=== PATIENT | male | born 1970 | race Hispanic/Latino ===

== ENCOUNTER 2021-09-12 01:57 | Inpatient (IN) | payer OTHER ==
[2021-09-12] VITALS (34 sets, daily range): BP systolic 82–165; BP diastolic 46–98
[~2021-09-12] VITALS: Ht 170.2 cm; Wt 72.8 kg
[2021-09-12] MEDS ORDERED: METHI10 PO (03:18)
[2021-09-12] MEDS ORDERED: METO25TA6 PO (03:18)
[2021-09-12 03:55] LABS: ABG BASE EXCESS 3.4 mmol/L (-2.0-3.0); ABG OXYGEN SATURATION 96.3 % (95.0-99.0); ABG PCO2 38 mmHg (35-48)
[2021-09-12 04:07] LABS: BASOPHILS % (AUTO) 0.7 % (0.0-5.0); EOSINOPHILS % (AUTO) 1.4 % (0.0-8.0); HEMATOCRIT 38.3 % (42-54); LYMPHOCYTES % (AUTO) 17.7 % (21.0-51.0); MEAN CORPUSCULAR HEMOGLOBIN 27.2 pg (27.0-33.0); MEAN CORPUSCULAR HGB CONC 32.1 g/dL (32.0-36.0); MEAN CORPUSCULAR VOLUME 84.7 fL (79-99); MONOCYTES % (AUTO) 7.2 % (3.0-13.0); NEUTROPHILS % (AUTO) 72.6 % (40.0-77.0); PLATELET COUNT (AUTO) 454 K/uL (130-400); RED BLOOD CELL COUNT(AUTO) 4.52 MIL/uL (4.50-6.20); RED CELL DISTRIBUTION WIDTH 11.7 % (11.0-15.5); WHITE BLOOD COUNT (AUTO) 9.8 K/uL (4.8-10.8)
[2021-09-12 04:22] LABS: INR 1.07 (0.85-1.15); PROTHROMBIN TIME 11.6 SEC (9.6-11.6)
[2021-09-12 04:23] LABS: PARTIAL THROMBOPLASTIN TIME 33.9 SEC (26.3-35.5)
[2021-09-12 04:32] LABS: ALBUMIN 2.8 g/dL (3.5-5.0); BILIRUBIN,TOTAL 0.3 mg/dL (0.2-1.0); CREATININE 0.7 mg/dL (0.5-1.5); POTASSIUM 4.1 mmol/L (3.5-5.1); TOTAL PROTEIN, SERUM 6.7 g/dL (6.0-8.3)
[2021-09-12 04:50] LABS: B-TYPE NATRIURETIC PEPTIDE 709 pg/mL (0-100)
[2021-09-12] MEDS ORDERED: METOPROLOL TARTRATE 25 MG TAB ONE (06:50)
[2021-09-12] MEDS ORDERED: EPINEPHRINE PF 1MG AMP 10 MG in 0.9% NACL 250ML 240 ML IV PRN (07:00)
[2021-09-12] MEDS ORDERED: CEFAZOLIN SODIUM 1 GM VIAL IVP PRN (07:00)
[2021-09-12] MEDS ORDERED: NOREPINEPHRINE BITARTRATE 8 MG in 0.9% NACL 250ML 250 ML IV PRN (07:00)
[2021-09-12] MEDS ORDERED: AMINOCAPROIC ACID 5,000MG VIAL 15,000 MG in 0.9% NACL 500ML IV.SOLN 420 ML IV PRN (07:00)
[2021-09-12] MEDS ORDERED: PAPAVERINE HCL 30 MG/ML 2ML VIAL ONE (07:53)
[2021-09-12] MEDS ORDERED: CEFAZOLIN SODIUM 1 GM VIAL ONE (07:53)
[2021-09-12] MEDS ORDERED: NITROGLYCERIN 50MG/D5W 250ML 1 BOT ONE (08:37)
[2021-09-12] MEDS: ASPIRIN 81MG CHEW TAB PO SCH (09:00)
[2021-09-12] MEDS ORDERED: METOPROLOL TARTRATE 25 MG TAB PO SCH (09:00)
[2021-09-12] MEDS ORDERED: 0.9%NACL 1000ML 1,000 ML IV ONE ×2 (09:22→15:50)
[2021-09-12] MEDS ORDERED: MIDAZOLAM HCL 1 MG/ML 2ML VIAL ONE (10:39)
[2021-09-12 11:42] LABS: CHOLESTEROL 208 mg/dL (<200); HDL CHOLESTEROL 49 mg/dL (29-71); LDL DIRECT 132 mg/dL (0-99); TRIGLYCERIDES 68 mg/dL (30-200)
[2021-09-12] MEDS ORDERED: SODIUM BICARB 8.4% 50ML SYRINGE IVP ONE (12:41)
[2021-09-12] MEDS ORDERED: ALBUMIN (HUMAN) 25% 50 ML IV ONE (12:41)
[2021-09-12] MEDS ORDERED: AMINOCAPROIC ACID 5,000MG VIAL IV ONE (12:41)
[2021-09-12] MEDS ORDERED: MANNITOL 25% 50ML VIAL IV ONE (12:41)
[2021-09-12] MEDS ORDERED: MAGNESIUM SULFATE 1 GM/2 ML VIAL IM ONE (12:41)
[2021-09-12] MEDS ORDERED: PHENYLEPHRINE HCL 10 MG/ML 1ML VIAL IV ONE (12:41)
[2021-09-12] MEDS ORDERED: HEPARIN 10,000 UNIT/10ML (1,000 UNIT/ML) VIAL IV ONE (12:41)
[2021-09-12] MEDS ORDERED: AMINOCAPROIC ACID 5,000MG VIAL ONE (12:44)
[2021-09-12] MEDS ORDERED: PROTAMINE SULFATE 10 MG/ML 25ML VIAL IV ONE (12:44)
[2021-09-12] MEDS ORDERED: SODIUM BICARB 50MEQ 50ML VIAL 50 ML ONE (12:44)
[2021-09-12] MEDS ORDERED: NOREPINEPHRINE BITARTRATE 1 MG/1 ML ML IV ONE (12:44)
[2021-09-12] MEDS ORDERED: HEPARIN 10,000 UNIT/10ML (1,000 UNIT/ML) VIAL ONE ×2 (12:44→15:01)
[2021-09-12] MEDS ORDERED: LIDOCAINE PF 100MG/5ML (2%) SYRINGE 5ML ONE ×2 (12:44→15:01)
[2021-09-12] MEDS ORDERED: EPINEPHRINE PF 1MG AMP ONE (12:44)
[2021-09-12] MEDS ORDERED: ESMOLOL HCL 10 MG/ML 10 ML VIAL ONE (12:44)
[2021-09-12] MEDS ORDERED: ROCURONIUM 10MG/1ML SYR 10 MG/ML ML ONE ×2 (12:45→14:23)
[2021-09-12] MEDS ORDERED: PROPOFOL 10 MG/ML 20ML VIAL IV ONE (12:45)
[2021-09-12] MEDS ORDERED: FENTANYL CITRATE PF 50 MCG/1 ML 20ML VIAL IJ ONE (12:45)
[2021-09-12 13:39] LABS: ABG BASE EXCESS -1.3 mmol/L (-2.0-3.0); ABG HCO3 22.8 mmol/L (21.0-28.0); ABG OXYGEN SATURATION 99.4 % (95.0-99.0); ABG PCO2 37 mmHg (35-48)
[2021-09-12] MEDS ORDERED: AMIODARONE 150MG VIAL ONE (14:46)
[2021-09-12] MEDS ORDERED: METOPROLOL TARTRATE 1 MG/ML 5ML VIAL IV ONE (15:04)
[2021-09-12 15:09] LABS: ABG BASE EXCESS -1.5 mmol/L (-2.0-3.0); ABG HCO3 22.5 mmol/L (21.0-28.0); ABG OXYGEN SATURATION 99.2 % (95.0-99.0); ABG PCO2 35 mmHg (35-48)
[2021-09-12 15:42] LABS: ABG BASE EXCESS 6.8 mmol/L (-2.0-3.0); ABG HCO3 29.4 mmol/L (21.0-28.0); ABG OXYGEN SATURATION 99.3 % (95.0-99.0); ABG PCO2 34 mmHg (35-48)
[2021-09-12] MEDS ORDERED: ONDANSETRON 4MG INJ IV PRN (16:00)
[2021-09-12] MEDS ORDERED: 0.9%NACL 1000ML 1,000 ML IV SCH (16:00)
[2021-09-12] MEDS ORDERED: NOREPINEPHRIN 4MG/NS 250ML 250 ML IV PRN (16:00)
[2021-09-12] MEDS ORDERED: 0.9%NACL 10ML VIAL IVP PRN (16:00)
[2021-09-12] MEDS ORDERED: MORPHINE 4 MG SYG IV PRN (16:00)
[2021-09-12] MEDS ORDERED: CALCIUM GLUC 1GM 1 GM in 0.9%NACL 50ML 50 ML IV PRN (16:00)
[2021-09-12] MEDS ORDERED: ALBUMIN (HUMAN) 5% 250 ML IV PRN (16:00)
[2021-09-12] MEDS ORDERED: POTASSIUM PHOS 15 mMOL+NS250ML 250 ML IV PRN (16:00)
[2021-09-12] MEDS ORDERED: INSULIN REGULAR, HUMAN 3ML 100 UNIT in 0.9%NACL 100ML 99 ML IV SCH ×2 (16:00)
[2021-09-12] MEDS ORDERED: GLUCAGON 1MG KIT 1 MG ML IM PRN (16:00)
[2021-09-12] MEDS ORDERED: AMINOCAPROIC ACID 5,000MG VIAL 15,000 MG in 0.9% NACL 250ML 250 ML IV SCH (16:00)
[2021-09-12] MEDS ORDERED: PROPOFOL 1000 MG/100 ML 100 ML IV PRN (16:00)
[2021-09-12] MEDS ORDERED: ACETAMINOPHEN 650 MG SUPPOSITORY RC PRN (16:00)
[2021-09-12] MEDS ORDERED: 0.9% NACL 500ML IV.SOLN 500 ML IV SCH (16:00)
[2021-09-12] MEDS ORDERED: EPINEPHRINE PF 1MG AMP 10 MG in DEXTROSE 5%-WATER 250 ML IV PRN (16:00)
[2021-09-12] MEDS ORDERED: MORPHINE 2 MG SYG IV PRN (16:00)
[2021-09-12] MEDS ORDERED: DEXTROSE 50%-WATER 50 ML DISP.SYRIN IV PRN (16:00)
[2021-09-12 16:38] LABS: ABG BASE EXCESS 1.3 mmol/L (-2.0-3.0); ABG HCO3 25.9 mmol/L (21.0-28.0); ABG PCO2 41 mmHg (35-48)
[2021-09-12 16:51] LABS: HEMATOCRIT 30.1 % (42-54); MEAN CORPUSCULAR HEMOGLOBIN 27.4 pg (27.0-33.0); MEAN CORPUSCULAR HGB CONC 32.6 g/dL (32.0-36.0); MEAN CORPUSCULAR VOLUME 84.1 fL (79-99); RED BLOOD CELL COUNT(AUTO) 3.58 MIL/uL (4.50-6.20); RED CELL DISTRIBUTION WIDTH 11.6 % (11.0-15.5); WHITE BLOOD COUNT (AUTO) 16.8 K/uL (4.8-10.8)
[2021-09-12] MEDS: POTASSIUM CHLORIDE 20MEQ/100ML 100 ML IV PRN ×2 (16:58→19:51)
[2021-09-12 17:03] LABS: INR 1.16 (0.85-1.15); PROTHROMBIN TIME 12.5 SEC (9.6-11.6)
[2021-09-12 17:04] LABS: CREATININE 0.7 mg/dL (0.5-1.5); MAGNESIUM 1.9 mg/dL (1.80-2.40); PHOSPHORUS 4.7 mg/dL (2.5-4.9); POTASSIUM 3.5 mmol/L (3.5-5.1)
[2021-09-12 17:05] LABS: PARTIAL THROMBOPLASTIN TIME 28.3 SEC (26.3-35.5)
[2021-09-12] MEDS: MAGNESIUM 2GM PREMIX 50ML 50 ML IV PRN (17:52)
[2021-09-12 18:16] LABS: ABG BASE EXCESS 0.1 mmol/L (-2.0-3.0); ABG HCO3 24.7 mmol/L (21.0-28.0); ABG OXYGEN SATURATION 97.8 % (95.0-99.0); ABG PCO2 40 mmHg (35-48)
[2021-09-12 19:41] LABS: ABG BASE EXCESS -1.7 mmol/L (-2.0-3.0); ABG OXYGEN SATURATION 98.1 % (95.0-99.0); ABG PCO2 39 mmHg (35-48)
[2021-09-12] MEDS: FAMOTIDINE 20MG VIAL IV SCH (20:17)
[2021-09-12] MEDS: ATORVASTATIN 40 MG TABLET PO SCH (20:17)
[2021-09-12] MEDS: CEFAZOLIN SODIUM 1 GM VIAL IV SCH (20:17)
[2021-09-12] MEDS ORDERED: NOREPINEPHRIN 8MG/250ML NS PMX 250 ML IV ONE (22:05)
[2021-09-12 23:41] LABS: ABG BASE EXCESS -6.2 mmol/L (-2.0-3.0); ABG HCO3 18.7 mmol/L (21.0-28.0); ABG OXYGEN SATURATION 98.1 % (95.0-99.0); ABG PCO2 35 mmHg (35-48)
[2021-09-12] MEDS: SODIUM BICARB 50MEQ 50ML VIAL IV PRN ×2 (23:55→23:56)
[2021-09-12] MEDS: ACETAMINOPHEN 325 MG TAB PO PRN (23:58)
[2021-09-12] MEDS: TRAMADOL HCL 50 MG TABLET PO PRN (23:59)
[2021-09-13] VITALS (90 sets, daily range): BP systolic 94–229; BP diastolic 44–229
[2021-09-13] MEDS: SODIUM BICARB 50MEQ 50ML VIAL IV PRN ×2 (00:44→04:25)
[2021-09-13 03:50] LABS: HEMATOCRIT 28.5 % (42-54); MEAN CORPUSCULAR HEMOGLOBIN 26.9 pg (27.0-33.0); MEAN CORPUSCULAR HGB CONC 31.6 g/dL (32.0-36.0); MEAN CORPUSCULAR VOLUME 85.1 fL (79-99); RED BLOOD CELL COUNT(AUTO) 3.35 MIL/uL (4.50-6.20); RED CELL DISTRIBUTION WIDTH 11.8 % (11.0-15.5)
[2021-09-13 04:04] LABS: INR 1.17 (0.85-1.15); PROTHROMBIN TIME 12.6 SEC (9.6-11.6)
[2021-09-13 04:05] LABS: PARTIAL THROMBOPLASTIN TIME 28.2 SEC (26.3-35.5)
[2021-09-13 04:16] LABS: ABG BASE EXCESS -1.3 mmol/L (-2.0-3.0); ABG HCO3 24.1 mmol/L (21.0-28.0); ABG OXYGEN SATURATION 97.9 % (95.0-99.0); ABG PCO2 43 mmHg (35-48)
[2021-09-13 04:19] LABS: ABG BASE EXCESS -2.8 mmol/L (-2.0-3.0); ABG HCO3 21.9 mmol/L (21.0-28.0); ABG PCO2 38 mmHg (35-48)
[2021-09-13] MEDS: CEFAZOLIN SODIUM 1 GM VIAL IV SCH ×2 (04:26→14:31)
[2021-09-13] MEDS: TRAMADOL HCL 50 MG TABLET PO PRN ×4 (04:27→22:26)
[2021-09-13 04:29] LABS: CREATININE 0.9 mg/dL (0.5-1.5); MAGNESIUM 1.7 mg/dL (1.80-2.40); PHOSPHORUS 4.7 mg/dL (2.5-4.9)
[2021-09-13] MEDS: POTASSIUM CHLORIDE 20MEQ/100ML 100 ML IV PRN (04:45)
[2021-09-13] MEDS: MAGNESIUM 2GM PREMIX 50ML 50 ML IV PRN (04:45)
[2021-09-13] MEDS: ASPIRIN 81MG CHEW TAB PO SCH (08:13)
[2021-09-13] MEDS: FAMOTIDINE 20MG VIAL IV SCH ×2 (08:14→20:34)
[2021-09-13 08:25] LABS: THYROID STIMULATING HORMONE < 0.01 uIU/mL (0.36-3.74)
[2021-09-13] MEDS: METHIMAZOLE 10 MG TAB PO SCH ×3 (10:26→20:36)
[2021-09-13] MEDS: INSULIN HUMULIN R 100 UNIT/ML 3ML SQ SCH ×2 (16:18→20:30)
[2021-09-13] MEDS ORDERED: FAMOTIDINE 20MG TAB ONE (20:32)
[2021-09-13] MEDS: ATORVASTATIN 40 MG TABLET PO SCH (20:35)
[2021-09-14] VITALS (27 sets, daily range): BP systolic 98–132; BP diastolic 49–75
[2021-09-14] MEDS: TRAMADOL HCL 50 MG TABLET PO PRN ×2 (03:48→10:24)
[2021-09-14 04:41] LABS: HEMATOCRIT 28.2 % (42-54); MEAN CORPUSCULAR HEMOGLOBIN 27.4 pg (27.0-33.0); MEAN CORPUSCULAR HGB CONC 31.9 g/dL (32.0-36.0); MEAN CORPUSCULAR VOLUME 85.7 fL (79-99); NUCLEATED RED BLOOD CELLS 0.1 % (0.0-0.19); RED BLOOD CELL COUNT(AUTO) 3.29 MIL/uL (4.50-6.20); WHITE BLOOD COUNT (AUTO) 14.3 K/uL (4.8-10.8)
[2021-09-14 04:53] LABS: CREATININE 0.8 mg/dL (0.5-1.5)
[2021-09-14] MEDS: INSULIN HUMULIN R 100 UNIT/ML 3ML SQ SCH ×4 (06:12→21:00)
[2021-09-14] MEDS: ASPIRIN 81MG CHEW TAB PO SCH (08:12)
[2021-09-14] MEDS: METHIMAZOLE 10 MG TAB PO SCH ×3 (08:12→19:57)
[2021-09-14] MEDS: FAMOTIDINE 20MG TAB PO SCH ×2 (08:12→19:57)
[2021-09-14] MEDS: KCL 20 MEQ ERTAB PO PRN ×2 (09:55→14:56)
[2021-09-14 14:00] LABS: APPEARANCE,URINE TURBID (CLEAR); BILIRUBIN,URINE MODERATE (NEGATIVE); COLOR,URINE RED (YELLOW); GLUCOSE, URINE (UA) NEGATIVE (NEGATIVE); KETONES,URINE 5 mg/dL (NEGATIVE); LEUKOCYTE ESTERASE ,URINE TRACE (NEGATIVE); NITRATE,URINE POSITIVE (NEGATIVE); OCCULT BLOOD,URINE LARGE (NEGATIVE); PH,URINE 5.5 (5.0-8.0); PROTEIN,URINE 100 mg/dL (NEGATIVE)
[2021-09-14 14:23] LABS: AMORPHOUS SEDIMENT,UR Moderate /LPF (None Seen); BACTERIA,URINE Many /HPF (None Seen)
[2021-09-14 14:24] LABS: RBC,URINE 0-1 /HPF (0-1); SQUAMOUS EPITHELIAL CELL,UR None Seen /HPF (0-2); WBC,URINE 0-1 /HPF (0-1)
[2021-09-14] MEDS: LEVOFLOXACIN 500 MG TABLET PO SCH (17:18)
[2021-09-14] MEDS: HYDROCODONE/ACETAMINOPHEN 10/325 MG TAB PO PRN ×2 (17:19→23:34)
[2021-09-14] MEDS: ATORVASTATIN 40 MG TABLET PO SCH (19:56)
[2021-09-14] MEDS ORDERED: METOPROLOL TARTRATE 25 MG TAB PO SCH (21:00)
[2021-09-15] VITALS: BP 105/65
[2021-09-15 04:00] VITALS: BP 111/68
[2021-09-15 04:26] LABS: HEMATOCRIT 24.9 % (42-54); MEAN CORPUSCULAR HEMOGLOBIN 26.8 pg (27.0-33.0); MEAN CORPUSCULAR HGB CONC 32.1 g/dL (32.0-36.0); MEAN CORPUSCULAR VOLUME 83.3 fL (79-99); NUCLEATED RED BLOOD CELLS 0.2 % (0.0-0.19); RED BLOOD CELL COUNT(AUTO) 2.99 MIL/uL (4.50-6.20); RED CELL DISTRIBUTION WIDTH 11.9 % (11.0-15.5); WHITE BLOOD COUNT (AUTO) 11.3 K/uL (4.8-10.8)
[2021-09-15 04:37] LABS: CREATININE 0.8 mg/dL (0.5-1.5)
[2021-09-15] MEDS: HYDROCODONE/ACETAMINOPHEN 10/325 MG TAB PO PRN ×3 (06:25→18:06)
[2021-09-15] MEDS: INSULIN HUMULIN R 100 UNIT/ML 3ML SQ SCH ×4 (06:35→20:18)
[2021-09-15 08:33] VITALS: BP 115/66
[2021-09-15] MEDS: FAMOTIDINE 20MG TAB PO SCH ×2 (09:00→20:25)
[2021-09-15] MEDS: METOPROLOL TARTRATE 25 MG TAB PO SCH ×2 (09:03→20:24)
[2021-09-15] MEDS: METHIMAZOLE 10 MG TAB PO SCH ×3 (09:03→20:26)
[2021-09-15] MEDS: ASPIRIN 81MG CHEW TAB PO SCH (09:04)
[2021-09-15 12:31] VITALS: BP 119/73
[2021-09-15] MEDS: POLYETHYLENE GLYCOL 3350 17 GM POWD.PACK PO SCH (15:45)
[2021-09-15 16:30] VITALS: BP 123/72
[2021-09-15] MEDS: LEVOFLOXACIN 500 MG TABLET PO SCH (17:19)
[2021-09-15] MEDS: ENOXAPARIN SODIUM 30 MG/0.3 ML SQ SCH (17:22)
[2021-09-15 19:46] VITALS: BP 124/67
[2021-09-15] MEDS: ATORVASTATIN 40 MG TABLET PO SCH (20:24)
[2021-09-15] MEDS: FERROUS GLUCONATE TABLET PO SCH (20:25)
[2021-09-16 00:17] VITALS: BP 115/67
[2021-09-16 03:42] LABS: HEMATOCRIT 24.3 % (42-54); MEAN CORPUSCULAR HEMOGLOBIN 27.6 pg (27.0-33.0); MEAN CORPUSCULAR HGB CONC 32.5 g/dL (32.0-36.0); NUCLEATED RED BLOOD CELLS 0.4 % (0.0-0.19); RED BLOOD CELL COUNT(AUTO) 2.86 MIL/uL (4.50-6.20); WHITE BLOOD COUNT (AUTO) 9.9 K/uL (4.8-10.8)
[2021-09-16 04:30] VITALS: BP 128/78
[2021-09-16 04:34] LABS: CREATININE 0.8 mg/dL (0.5-1.5); POTASSIUM 4.2 mmol/L (3.5-5.1)
[2021-09-16] MEDS: HYDROCODONE/ACETAMINOPHEN 10/325 MG TAB PO PRN ×2 (04:35→18:22)
[2021-09-16] MEDS: INSULIN HUMULIN R 100 UNIT/ML 3ML SQ SCH ×4 (06:47→20:44)
[2021-09-16 08:22] VITALS: BP 122/71
[2021-09-16] MEDS: FAMOTIDINE 20MG TAB PO SCH ×2 (09:00→20:41)
[2021-09-16] MEDS: FERROUS GLUCONATE TABLET PO SCH ×2 (09:10→20:40)
[2021-09-16] MEDS: ASPIRIN 81MG CHEW TAB PO SCH (09:11)
[2021-09-16] MEDS: POLYETHYLENE GLYCOL 3350 17 GM POWD.PACK PO SCH (09:11)
[2021-09-16] MEDS: METOPROLOL TARTRATE 25 MG TAB PO SCH ×2 (09:11→20:41)
[2021-09-16] MEDS: ENOXAPARIN SODIUM 30 MG/0.3 ML SQ SCH (09:12)
[2021-09-16] MEDS: METHIMAZOLE 10 MG TAB PO SCH ×3 (10:05→20:42)
[2021-09-16 12:12] VITALS: BP 126/67
[2021-09-16] MEDS ORDERED: BISACODYL 10 MG SUPP.RECT RC PRN (15:30)
[2021-09-16] MEDS: LEVOFLOXACIN 500 MG TABLET PO SCH (16:20)
[2021-09-16 16:58] VITALS: BP 120/83
[2021-09-16 19:53] VITALS: BP 133/79
[2021-09-16] MEDS: DOCUSATE SODIUM 100 MG CAP PO SCH (20:40)
[2021-09-16] MEDS: ATORVASTATIN 40 MG TABLET PO SCH (20:40)
[2021-09-17 00:03] VITALS: BP 129/76
[2021-09-17 03:54] VITALS: BP 140/87
[2021-09-17] MEDS: INSULIN HUMULIN R 100 UNIT/ML 3ML SQ SCH ×2 (06:04→11:30)
[2021-09-17 07:00] VITALS: BP 150/86
[2021-09-17] MEDS: FAMOTIDINE 20MG TAB PO SCH (08:43)
[2021-09-17] MEDS: ASPIRIN 81MG CHEW TAB PO SCH (08:44)
[2021-09-17] MEDS: METOPROLOL TARTRATE 25 MG TAB PO SCH (08:44)
[2021-09-17] MEDS: FERROUS GLUCONATE TABLET PO SCH (08:44)
[2021-09-17] MEDS: ENOXAPARIN SODIUM 30 MG/0.3 ML SQ SCH (08:46)
[2021-09-17] MEDS: METHIMAZOLE 10 MG TAB PO SCH ×2 (08:49→14:23)
[2021-09-17] MEDS: POLYETHYLENE GLYCOL 3350 17 GM POWD.PACK PO SCH (09:00)
[2021-09-17] MEDS: DOCUSATE SODIUM 100 MG CAP PO SCH (09:00)
[2021-09-17] MEDS ORDERED: ASPI-1005 PO (09:31)
[2021-09-17] MEDS ORDERED: FERR324T17 PO (09:31)
[2021-09-17] MEDS ORDERED: METO25 PO (09:31)
[2021-09-17] MEDS ORDERED: ATOR40TA69 PO (09:31)
[2021-09-17] MEDS ORDERED: LEVO500T90 PO (09:31)
[2021-09-17 11:00] VITALS: BP 121/79
[2021-09-17] MEDS: ACETAMINOPHEN 325 MG TAB PO PRN (15:00)
== END 2021-09-17 15:35 | disposition home or self-care (01) | DRG 235 ==
LOC: 2DH 01:57 → 2CV 11:41 → 2CH 09-13 17:56 → 2DH 09-14 17:55
PROVIDERS: ADMIT Internal Medicine Critical Care Medicine; ATTEND Internal Medicine Critical Care Medicine
PROC: 5A1221Z Performance of Cardiac Output, Continuous (ICD-10-PCS; 2021-09-12)
PROC: 02100Z9 Bypass Coronary Artery, One Artery from Left Internal Mammary, Open Approach (ICD-10-PCS; principal; 2021-09-12 12:39)
PROC: 021109W Bypass Coronary Artery, Two Arteries from Aorta with Autologous Venous Tissue, Open Approach (ICD-10-PCS; 2021-09-12 12:39)
PROC: 06BQ4ZZ Excision of Left Saphenous Vein, Percutaneous Endoscopic Approach (ICD-10-PCS; 2021-09-12 12:39)
DX: I21.4 Non-ST elevation (NSTEMI) myocardial infarction (principal); J95.1 Acute pulmonary insufficiency following thoracic surgery; N39.0 Urinary tract infection, site not specified; D64.9 Anemia, unspecified; I10 Essential (primary) hypertension; E78.5 Hyperlipidemia, unspecified; I25.10 Atherosclerotic heart disease of native coronary artery without angina pectoris; E03.9 Hypothyroidism, unspecified; E04.1 Nontoxic single thyroid nodule; E05.90 Thyrotoxicosis, unspecified without thyrotoxic crisis or storm; E78.00 Pure hypercholesterolemia, unspecified; Z20.822 Contact with and (suspected) exposure to COVID-19; Z79.899 Other long term (current) drug therapy; Z82.49 Family history of ischemic heart disease and other diseases of the circulatory system
CPT/HCPCS: 36415; 36600; 71045; 76536; 80048; 80053; 80061; 81001; 82435; 82803; 82947; 82948; 83605; 83735; 83880; 84100; 84132; 84295; 84439; 84443; 84481; 84484; 85018; 85025; 85027; 85610; 85730; 86850; 86900; 86901; 86923; 87088; 93005; 93880; 94002; 94003; 94150; 97039; G0378; J0171; J0282; J0690; J1644; J1650; J1815; J2001; J2150; J2250; J2270; J2370; J2405; J2440; J2704; J2720; J3010; J3475; J3480; J3490; J7030; P9045; P9047

== ENCOUNTER → 2022-07-02 | Outpatient (CLI) | payer OTHER ==
[~2022-07-02] MED LIST: ASPI-1005 PO; ATOR40TA69 PO; FERR324T17 PO; LEVO-70 PO; METHI10 PO; METO25 PO
[2022-07-02 09:46] LABS: HEMOGLOBIN A1C 6.3 % (4.0-6.0)
[2022-07-02 10:03] LABS: ALBUMIN 4.3 g/dL (3.5-5.0); CREATININE 0.9 mg/dL (0.5-1.5); POTASSIUM 4.6 mmol/L (3.5-5.1); THYROID STIMULATING HORMONE 0.12 uIU/mL (0.36-3.74); TOTAL PROTEIN, SERUM 8.4 g/dL (6.0-8.3)
[2022-07-02 10:21] LABS: BASOPHILS % (AUTO) 1.1 % (0.0-5.0); EOSINOPHILS % (AUTO) 3.5 % (0.0-8.0); HEMATOCRIT 47.8 % (42-54); LYMPHOCYTES % (AUTO) 26.9 % (21.0-51.0); MEAN CORPUSCULAR HEMOGLOBIN 28.1 pg (27.0-33.0); MEAN CORPUSCULAR HGB CONC 33.1 g/dL (32.0-36.0); MEAN CORPUSCULAR VOLUME 84.9 fL (79-99); MONOCYTES % (AUTO) 7.8 % (3.0-13.0); NEUTROPHILS % (AUTO) 60.2 % (40.0-77.0); PLATELET COUNT (AUTO) 289 K/uL (130-400); RED BLOOD CELL COUNT(AUTO) 5.63 MIL/uL (4.50-6.20); RED CELL DISTRIBUTION WIDTH 12.1 % (11.0-15.5); WHITE BLOOD COUNT (AUTO) 6.5 K/uL (4.8-10.8)
== END | disposition home or self-care (01) ==
LOC: LAB 08:48
PROVIDERS: ATTEND Student in an Organized Health Care Education/Training Program
DX: I10 Essential (primary) hypertension (principal)
CPT/HCPCS: 36415; 80053; 80061; 83036; 84443; 85025

== ENCOUNTER → 2022-08-20 | Outpatient (CLI) | payer OTHER | END | disposition home or self-care (01) | LOC: RAH 08:33 | PROVIDERS: ATTEND Student in an Organized Health Care Education/Training Program | DX: R07.9 Chest pain, unspecified (principal) | CPT/HCPCS: 78452; 96374; 93017; A9500 ×2 ==

== ENCOUNTER → 2023-12-02 | Outpatient (CLI) | payer OTHER ==
[~2023-12-02] MED LIST changes: +IOHEXOL 350 MG/ML 100ML INFUS..BTL IV ONE; +METOPROLOL TARTRATE 1 MG/ML 5ML VIAL IV ONE
== END | disposition home or self-care (01) ==
LOC: RAH 10:14
PROVIDERS: ATTEND Student in an Organized Health Care Education/Training Program
DX: R07.9 Chest pain, unspecified (principal)
CPT/HCPCS: 75574; J3490; Q9967